=== PATIENT | male | born 1990 | race Caucasian/White ===

== ENCOUNTER 2018-09-08 13:04 | Emergency (ER) | payer SELFPAY ==
[2018-09-08] MEDS ORDERED: Adacel (T-DAP) 0.5 ML SYRINGE ONE (14:20)
[2018-09-08] MEDS ORDERED: Morphine 4 MG/ML VIAL ONE (14:20)
--- NOTE | 2018-09-08 14:28 | RAD ---
RIGHT WRIST 3 VIEWS: Date: 09/08/18 HISTORY: Right wrist pain following an injury from a fall. FINDINGS: Mild negative ulnar variance. No fracture or dislocation. Minimal soft tissue swelling. IMPRESSION: Minimal soft tissue swelling. Mild negative ulnar variance. No fracture or dislocation. If the patient has persistent or worsening nonresolving symptoms, follow-up exam in 5-7 days or addit ional imaging with MRI should be considered. POS: [facility]
[2018-09-08] MEDS ORDERED: Bacitracin Zinc 1 Packet ONE (14:32)
--- NOTE | 2018-09-08 14:33 | RAD ---
LEFT CLAVICLE 2 VIEWS: Date: 09/08/18 PROVIDED CLINICAL HISTORY: Left clavicle pain status post fall. FINDINGS: There is a comminuted, obliquely oriented fracture of the junction of the middle and distal thirds of the left clavicle, proximal to the coracoclavicular ligaments. There is fracture displacement, by ab out one shaft width. No additional fracture is evident. IMPRESSION: Displaced left clavicular fracture. POS: OFF
== END 2018-09-08 14:44 | disposition home or self-care (01) ==
LOC: ERS 13:04
DX: S42.032A Displaced fracture of lateral end of left clavicle, initial encounter for closed fracture (principal); S42.012A Anterior displaced fracture of sternal end of left clavicle, initial encounter for closed fracture; S00.81XA Abrasion of other part of head, initial encounter; E10.9 Type 1 diabetes mellitus without complications; V19.9XXA Pedal cyclist (driver) (passenger) injured in unspecified traffic accident, initial encounter
CPT/HCPCS: 90471; 90715; 96374; J2270